=== PATIENT | male | born 1960 | race Caucasian/White ===

== ENCOUNTER → 2017-06-28 | Outpatient (CLI) | payer OTHER ==
--- NOTE | 2017-06-28 16:26 | DIAGNOSTIC IMAGING REPORT ---
CHEST 2 VIEWS ROUTINE CLINICAL HISTORY: INFLUENZA B COMPARISON STUDY: No previous studies for comparison. FINDINGS: The heart is the upper limits of normal in size. There is no failure. There is no focal pulmonary consolidation. There is suspected mild lower lobe bronchial wall thickening. No pleural effusions are visualized.[ IMPRESSION: Subtle lower lobe bronchial wall thickening is suspected. No evidence of focal pulmonary consolidation Electronically signed by: Eddie Maloney M.D. 06/28/2017 4:24 PM Dictated Date/Time: 06/28/2017 4:24 PM
== END | disposition home or self-care (01) ==
LOC: C.RADPV 16:12
PROVIDERS: ATTEND Family Medicine
DX: J10.1 Influenza due to other identified influenza virus with other respiratory manifestations (principal)